=== PATIENT | male | born 1970 | race Caucasian/White ===

== ENCOUNTER 2023-01-30 11:22 | Emergency (ER) | payer OTHER ==
[2023-01-30] MEDS ORDERED: Aspirin 81 MG Tab.Chew PO ONE (11:32)
[2023-01-30 12:34] LABS: BASOPHILS PERCENT AUTO 0.3 % (0.0-1.5); EOSINOPHILS ABSOLUTE AUTO 0.2 K/uL (0.0-0.7); EOSINOPHILS PERCENT AUTO 2.2 % (0.0-7.0); HEMATOCRIT 39.6 % (38.0-50.0); HEMOGLOBIN 13.5 g/dL (13.0-17.0); LYMPHOCYTES ABSOLUTE AUTO 1.8 K/uL (0.6-2.4); MEAN CORPUSCULAR HEMOGLOBIN 32.5 pg (27.0-32.0); MEAN CORPUSCULAR HGB CONC 34.1 g/dL (31.0-37.0); MEAN CORPUSCULAR VOLUME 95.2 fL (80.0-98.0); MONOCYTES ABSOLUTE AUTO 0.9 K/uL (0.0-0.8); MONOCYTES PERCENT AUTO 13.3 % (0.0-15.0); NEUTROPHILS ABSOLUTE AUTO 3.8 K/uL (1.4-5.7); NEUTROPHILS PERCENT AUTO 57.2 % (48.0-80.0); PLATELET COUNT,PLT 171 K/uL (150-400); RED BLOOD CELL COUNT 4.16 M/uL (4.50-5.90)
[2023-01-30 13:05] LABS: A/G RATIO 1.2 (0.9-1.6); ALBUMIN 3.8 g/dL (3.4-5.0); BILIRUBIN TOTAL 0.4 mg/dL (0.2-1.0); CALCIUM 7.8 mg/dL (8.5-10.1); EST CRCL DRUG DOSING (CG) 86.41 mL/min; POTASSIUM,K 3.9 mmol/L (3.5-5.1); PROTEIN TOTAL,TP 7.1 g/dL (6.4-8.2)
[2023-01-30 13:06] LABS: D-DIMER QUANTITATIVE 0.31 mg/L FEU (0.00-0.50)
[2023-01-30 13:07] LABS: APPEARANCE,URINE CLEAR; BILIRUBIN,URINE NEGATIVE (NEGATIVE); COLOR,URINE YELLOW; GLUCOSE,URINE NEGATIVE (NEGATIVE); KETONES,URINE NEGATIVE (NEGATIVE); LEUKOCYTE ESTERASE,URINE NEGATIVE (NEGATIVE); NITRITE,URINE NEGATIVE (NEGATIVE); OCCULT BLOOD,URINE NEGATIVE (NEGATIVE); PROTEIN,URINE NEGATIVE (NEGATIVE); UROBILINOGEN,URINE 0.2 EU/dL (<2.0)
== END 2023-01-30 14:54 | disposition home or self-care (01) ==
LOC: MW.ED 11:22 → EDBD 11:22 → MW.ED 14:54
DX: R07.89 Other chest pain (principal); I10 Essential (primary) hypertension
CPT/HCPCS: 36415; 71045; 80053; 81003; 83690; 83880; 84484; 85025; 85379; 85610; 93005; 99285; A9270; 93010; 99283

== ENCOUNTER 2023-12-21 15:22 | Day surgery (SDC) | payer OTHER ==
[2023-12-21] MEDS ORDERED: Bupivacaine 0.5% 30 ML SDV ONE (16:18)
[2023-12-21] MEDS ORDERED: Propofol 200 MG/20 ML SDV ONE (16:37)
[2023-12-21] MEDS ORDERED: Water For Injection, Sterile 20 ML ONE (16:37)
[2023-12-21] MEDS ORDERED: dexmedeTOMIDine HCl 200 MCG/2 ML SDV ONE (16:37)
[2023-12-21] MEDS ORDERED: fentaNYL 100 MCG/2 ML SDV ONE ×2 (16:38→17:24)
[2023-12-21] MEDS ORDERED: Succinylcholine/Sod PF 100 MG/5 ML SYRINGE IV ONE (16:41)
[2023-12-21] MEDS: Piperacillin/Tazobactam 4.5 GM in Sodium Chloride 0.9% 100 ML IV ONE (17:11)
[2023-12-21] MEDS ORDERED: Dexamethasone 4 MG/ML 5 ML MDV ONE (17:22)
[2023-12-21] MEDS ORDERED: Ondansetron 4 MG/2 ML SDV ONE (17:22)
[2023-12-21] MEDS ORDERED: HYDROmorphone 2 MG/ML Syringe ONE (17:39)
== END 2023-12-21 21:00 | disposition home or self-care (01) ==
LOC: MW.ED 15:22 → MW.SDS 16:34 → MW.MS 16:59 → MW.SDS 21:00
PROVIDERS: ATTEND Surgery
DX: K61.0 Anal abscess (principal); I10 Essential (primary) hypertension; E78.00 Pure hypercholesterolemia, unspecified; I25.2 Old myocardial infarction; Z95.5 Presence of coronary angioplasty implant and graft
CPT/HCPCS: 46020; 46050; 96365; 99284; J0131; J0330; J0665; J1100; J1170; J2405; J2543; J2704; J3010; J3490; 99285